=== PATIENT | male | born 1975 | race Caucasian/White ===

== ENCOUNTER → 2017-07-06 | Outpatient (CLI) | payer OTHER | END | disposition home or self-care (01) | LOC: C.LABSPEC 10:43 | PROVIDERS: ATTEND Urology | DX: N43.40 Spermatocele of epididymis, unspecified (principal) ==

== ENCOUNTER → 2017-09-07 | Outpatient (CLI) | payer OTHER ==
--- NOTE | 2017-09-07 14:05 | DIAGNOSTIC IMAGING REPORT ---
EXAMINATION: RENAL ULTRASOUND CLINICAL HISTORY: N43.40 [id number] COMPARISON STUDY: FINDINGS: The right kidney measures 10.7 cm. The left kidney measures 10.8 cm. There is no evidence of hydronephrosis. There is a 5 mm echogenic focus within the lower pole the right kidney. A small calculus cannot be excluded. Incidentally noted is a 15 mm predominately hypoechoic lesion within the spleen. No bladder abnormalities are visualized. Bilateral ureteral jets were visualized. IMPRESSION : 1. No evidence of hydronephrosis. No renal masses identified 2. Equivocal 5 mm lower pole left renal calculus 3. Indeterminate 15 mm hypodense splenic lesion Electronically signed by: Chao Davis M.D. 09/07/2017 2:04 PM Dictated Date/Time: 09/07/2017 2:02 PM
== END | disposition home or self-care (01) ==
LOC: C.ULTR 13:32
PROVIDERS: ATTEND Urology
DX: N43.40 Spermatocele of epididymis, unspecified (principal); N20.0 Calculus of kidney; D73.89 Other diseases of spleen

== ENCOUNTER → 2017-10-11 | Outpatient (CLI) | payer OTHER ==
--- NOTE | 2017-10-11 15:14 | DIAGNOSTIC IMAGING REPORT ---
ABD/PELVIS NO IV OR ORAL CONT CLINICAL HISTORY: 42 years-old Male presenting with N20.0 Nephrolithiasis. TECHNIQUE: Multidetector CT of the abdomen and pelvis was performed without the use of intravenous contrast. IV contrast: None. A dose lowering technique was used consistent with the principles of ALARA (as low as reasonably achievable). COMPARISON: Renal ultrasound from 09/07/2017. CT DOSE (mGy.cm): The estimated cumulative dose is 1089.73 mGy.cm. 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 Lung bases: Lungs and pleural spaces clear. Normal heart size. No pericardial or pleural effusion. Liver: Normal morphology. Density consistent with hepatic steatosis. Biliary: No gross biliary ductal dilatation allowing for noncontrast technique. Gallbladder decompressed. Pancreas: Normal noncontrast appearance. Spleen: Normal noncontrast appearance. Splenules noted. Adrenal glands: Multiple small nodules in the left adrenal gland are subcentimeter with densities consistent with benign adenomas. Right adrenal gland normal. Kidneys and ureters: Normal noncontrast appearance. No nephrolithiasis. No hydronephrosis. Normal ureters. Bladder: Normal. Pelvic organs: Prostate and seminal vesicles normal. Bowel: Normal appendix. No bowel obstruction. Peritoneal cavity: No free fluid or intraperitoneal gas. Lymph nodes: No gross lymphadenopathy allowing for noncontrast technique. Vasculature: Normal noncontrast appearance. Abdominal wall: A surgical mesh may be in place from prior left inguinal hernia repair. Small fat-containing umbilical hernia. Musculoskeletal: Bilateral pars defects of L5. Grade 1 anterolisthesis of L5 on S1. IMPRESSION: 1. No acute intra-abdominal pathology. No nephrolithiasis or hydronephrosis. 2. Postsurgical changes of left inguinal hernia repair. 3. Multiple subcentimeter benign left adrenal adenomas suggested. Electronically signed by: Sid Bowles M.D. 10/11/2017 3:13 PM Dictated Date/Time: 10/11/2017 3:05 PM
== END | disposition home or self-care (01) ==
LOC: C.CTS 14:38
PROVIDERS: ATTEND Urology
DX: N20.0 Calculus of kidney (principal)